=== PATIENT | male | born 1950 | race Caucasian/White ===

== ENCOUNTER 2021-08-17 20:18 | Inpatient (IN) ==
[2021-08-17 20:51] LABS: Basophils # 0.1 10*3/uL (0.0-0.2); Basophils % 0.4 % (0.0-0.8); Eosinophils % 0.1 % (0.00-10.9); Hematocrit 39.1 VOL% (42.0-52.0); Hemoglobin 12.6 GM/DL (14.0-18.0); Immature Granulocytes % 0.5 %; Immature Granulocytes Absolute 0.08 #; Lymphocytes # 0.6 10*3/uL (1.4-4.0); Mean Corpuscular HGB Conc 32.2 GM/DL (32-36); Mean Corpuscular Volume 101.3 FL (87-102); Mean Platelet Volume 11.4 FL (9.6-12.0); Monocytes % 6.7 % (1.7-12.7); Neutrophils % 88.3 % (38.7-73.9); Platelet Count 251 T/CUMM (130-400); Red Blood Count 3.86 MC/CUMM (3.8-5.5); Red Cell Distribution Width 13.9 % (9.3-17.3); White Blood Count 15.1 T/CUMM (4-12)
[2021-08-17 21:08] LABS: PT Patient Result 10.9 SECS (10.5-12.0)
[2021-08-17 21:15] LABS: Anisocytosis Slight; Band Neutrophils 8 % (0-10); Lymphocytes 2 % (20-55); Macrocytosis Slight; Platelet Estimate Normal; Target Cells Slight; Total Cells Counted 100
[2021-08-17 21:17] LABS: ABG HCO3 27.1 MMOL/L (20-26); ABG Oxygen Saturation 97.1 % (95-100); ABG PH 7.375 (7.35-7.45); ABG PO2 90.1 MM HG (80-95); ABG TCO2 25.9 MMOL/L (23-27)
[2021-08-17 21:18] LABS: Albumin 3.3 G/DL (3.4-5.0); Bilirubin,Total 0.4 MG/DL (0.20-1.00); Calcium 9.2 MG/DL (8.5-10.1); Osmolality,Calculated 291.5 MOS/KG (273-304); Potassium 3.9 MMOL/L (3.5-5.1); Total Protein 8.4 G/DL (6.4-8.2)
[2021-08-17] MEDS ORDERED: PIPERACILLIN/TAZOBACTAM 3,375 MG in SODIUM CHLORIDE 0.9% 100 ML IV STA (21:52)
[2021-08-17] MEDS ORDERED: SODIUM CHLORIDE 0.9% 1,000 ML IV STA (21:54)
[2021-08-18 00:51] LABS: Hyaline Casts,Urine 15 /LPF (0-3); Mucus,Urine Few /LPF (Occasional); RBC,Urine 2 /HPF (0-4); Squamous Epithelial Cell,Urine Occasional /HPF (0-10)
[2021-08-18 00:52] LABS: Bilirubin,Urine Negative (Negative); Blood, Urine Trace mg/dL (Negative); Glucose,Urine (UA) Negative (Negative); Ketones,Urine Negative (Negative); Nitrite,Urine Negative (Negative); Protein,Urine 30 mg/dL (Negative); Urine Appearance Clear (Clear); Urine Color Yellow (Yellow); Urine Specific Gravity >= 1.030 (1.001-1.035); Urine Urobilinogen 0.2 eU/dL (<2.0); Urine pH 5.5 (4.5-8.0)
[2021-08-18] MEDS ORDERED: LABETALOL 20 MG/4 ML SYRINGE IV STA (00:55)
[2021-08-18] MEDS ORDERED: ACETAMINOPHEN 500 MG TABLET PO STA (01:33)
[2021-08-18] MEDS ORDERED: SODIUM CHLORIDE 0.9% 1,000 ML IV STA (03:10)
[2021-08-18] MEDS ORDERED: ALBUTEROL 2.5 MG/3 ML NEB RESP TX PRN (03:35)
[2021-08-18] MEDS ORDERED: ONDANSETRON 4 MG/2 ML VIAL IV PRN (03:35)
[2021-08-18 04:40] LABS: ABG Base Excess 0.2 MMOL/L (-2.5-2.5); ABG HCO3 24.6 MMOL/L (20-26); ABG PH 7.265 (7.35-7.45); ABG TCO2 26.2 MMOL/L (23-27)
[2021-08-18] MEDS: LACTATED RINGERS 1,000 ML IV SCH ×3 (04:44→18:16)
[2021-08-18 05:09] LABS: Basophils % 0.2 % (0.0-0.8); Eosinophils % 0.1 % (0.00-10.9); Hematocrit 37.9 VOL% (42.0-52.0); Hemoglobin 11.6 GM/DL (14.0-18.0); Immature Granulocytes % 0.6 %; Immature Granulocytes Absolute 0.08 #; Lymphocytes # 0.7 10*3/uL (1.4-4.0); Lymphocytes % 4.9 % (21.2-54.2); Mean Corpuscular HGB Conc 30.6 GM/DL (32-36); Mean Corpuscular Volume 106.2 FL (87-102); Mean Platelet Volume 11.4 FL (9.6-12.0); Monocytes % 7.5 % (1.7-12.7); Neutrophils % 86.7 % (38.7-73.9); Platelet Count 224 T/CUMM (130-400); Red Blood Count 3.57 MC/CUMM (3.8-5.5); Red Cell Distribution Width 13.9 % (9.3-17.3); White Blood Count 13.2 T/CUMM (4-12)
[2021-08-18] MEDS ORDERED: DEXTROSE 10% 250 ML BAG IV PRN (05:21)
[2021-08-18] MEDS ORDERED: GLUCAGON 1 MG VIAL IM PRN (05:21)
[2021-08-18 05:31] LABS: Alanine Aminotransferase 35 U/L (16-61); Alkaline Phosphatase 73 U/L (45-117); Aspartate Amino Transferase 21 U/L (0-37); Bilirubin,Total < 0.39 MG/DL (0.20-1.00); Blood Urea Nitrogen 38 MG/DL (7-18); Calcium 8.6 MG/DL (8.5-10.1); Carbon Dioxide 31 MMOL/L (21-32); Chloride 108 MMOL/L (98-107); Estimated Glom Filtration Rate 116 ML/MIN; Glucose 149 MG/DL (74-106); Osmolality,Calculated 294.1 MOS/KG (273-304); Potassium 4.2 MMOL/L (3.5-5.1); Sodium 142 MMOL/L (136-145); Total Protein 7.3 G/DL (6.4-8.2)
[2021-08-18 05:32] LABS: Band Neutrophils 1 % (0-10); Hypochromia Slight; Lymphocytes 4 % (20-55); Microcytosis Slight; Platelet Estimate Adequate; Total Cells Counted 100
[2021-08-18] MEDS ORDERED: HYDROCORTISONE 100 MG VIAL IV ONE (05:32)
[2021-08-18] MEDS ORDERED: LACTATED RINGERS 500 ML IV ONE (05:32)
[2021-08-18] MEDS: methylPREDNISolone SOD SUC 40 MG/1 ML VIAL IV SCH ×2 (05:45→17:04)
[2021-08-18] MEDS: LEVOFLOXACIN INJ 750 MG/150 ML PREMIX IV SCH (05:59)
[2021-08-18] MEDS ORDERED: NOREPINEPHRINE 8 MG in SODIUM CHLORIDE 0.9% 242 ML IV PRN (06:34)
[2021-08-18] MEDS ORDERED: NOREPINEPHRINE 4 MG/4 ML VIAL IV ONE (06:37)
[2021-08-18] MEDS: ALBUTEROL/IPRATROPIUM 3 ML NEB RESP TX SCH ×3 (07:20→18:58)
[2021-08-18] MEDS: INSULIN LISPRO 100 UNIT/ML SUBCUT SCH ×4 (07:31→21:07)
[2021-08-18] MEDS: ENOXAPARIN 40 MG/0.4 ML SYRINGE SUBCUT SCH (08:37)
[2021-08-18] MEDS: PANTOPRAZOLE 40 MG VIAL IV SCH (08:38)
[2021-08-18] MEDS: PIPERACILLIN/TAZOBACTAM 3,375 MG in SODIUM CHLORIDE 0.9% 100 ML IV SCH ×2 (08:42→17:09)
[2021-08-18] MEDS: CARBIDOPA/LEVODOPA 25-100 MG TABLET PO SCH ×2 (08:50→16:04)
[2021-08-19] MEDS: ALBUTEROL/IPRATROPIUM 3 ML NEB RESP TX SCH ×4 (00:16→19:40)
[2021-08-19] MEDS: PIPERACILLIN/TAZOBACTAM 3,375 MG in SODIUM CHLORIDE 0.9% 100 ML IV SCH ×4 (00:24→23:39)
[2021-08-19] MEDS: LACTATED RINGERS 1,000 ML IV SCH ×5 (01:25→23:50)
[2021-08-19 04:57] LABS: Basophils % 0.1 % (0.0-0.8); Hematocrit 26.6 VOL% (42.0-52.0); Hemoglobin 8.5 GM/DL (14.0-18.0); Immature Granulocytes % 0.5 %; Immature Granulocytes Absolute 0.05 #; Lymphocytes % 9.4 % (21.2-54.2); Mean Corpuscular Volume 102.7 FL (87-102); Mean Platelet Volume 11.4 FL (9.6-12.0); Monocytes # 0.8 10*3/uL (0.11-0.8); Monocytes % 7.2 % (1.7-12.7); Neutrophils % 82.8 % (38.7-73.9); Platelet Count 181 T/CUMM (130-400); Red Blood Count 2.59 MC/CUMM (3.8-5.5); White Blood Count 10.4 T/CUMM (4-12)
[2021-08-19 05:07] LABS: PT Patient Result 10.9 SECS (10.5-12.0); Partial Thromboplastin Time 31.6 SECS (23.8-32.1)
[2021-08-19 05:16] LABS: Alanine Aminotransferase 20 U/L (16-61); Albumin 2.1 G/DL (3.4-5.0); Alkaline Phosphatase 51 U/L (45-117); Aspartate Amino Transferase 13 U/L (0-37); Bilirubin,Total < 0.39 MG/DL (0.20-1.00); Blood Urea Nitrogen 33 MG/DL (7-18); Calcium 8.6 MG/DL (8.5-10.1); Carbon Dioxide 27 MMOL/L (21-32); Chloride 110 MMOL/L (98-107); Estimated Glom Filtration Rate 139 ML/MIN; Glucose 100 MG/DL (74-106); Osmolality,Calculated 289.1 MOS/KG (273-304); Potassium 3.5 MMOL/L (3.5-5.1); Sodium 142 MMOL/L (136-145); Total Protein 5.9 G/DL (6.4-8.2)
[2021-08-19] MEDS: methylPREDNISolone SOD SUC 40 MG/1 ML VIAL IV SCH ×2 (05:50→17:37)
[2021-08-19] MEDS: LEVOFLOXACIN INJ 750 MG/150 ML PREMIX IV SCH (05:51)
[2021-08-19] MEDS: LINACLOTIDE 145 MCG CAPSULE PO SCH (09:15)
[2021-08-19] MEDS: INSULIN LISPRO 100 UNIT/ML SUBCUT SCH ×2 (09:16→21:17)
[2021-08-19] MEDS: ENOXAPARIN 40 MG/0.4 ML SYRINGE SUBCUT SCH (09:41)
[2021-08-19] MEDS: PANTOPRAZOLE 40 MG VIAL IV SCH (09:44)
[2021-08-19] MEDS: LORazepam 2 MG/1 ML VIAL IV PRN ×2 (09:54→21:36)
[2021-08-20] MEDS: ALBUTEROL/IPRATROPIUM 3 ML NEB RESP TX SCH ×4 (01:45→19:33)
[2021-08-20 06:20] LABS: Basophils % 0.1 % (0.0-0.8); Hematocrit 29.8 VOL% (42.0-52.0); Hemoglobin 9.7 GM/DL (14.0-18.0); Immature Granulocytes % 0.5 %; Immature Granulocytes Absolute 0.04 #; Lymphocytes # 1.3 10*3/uL (1.4-4.0); Lymphocytes % 14.5 % (21.2-54.2); Mean Corpuscular HGB Conc 32.6 GM/DL (32-36); Mean Corpuscular Volume 101.7 FL (87-102); Mean Platelet Volume 10.8 FL (9.6-12.0); Monocytes # 0.6 10*3/uL (0.11-0.8); Monocytes % 7.2 % (1.7-12.7); Neutrophils % 77.7 % (38.7-73.9); Platelet Count 210 T/CUMM (130-400); Red Blood Count 2.93 MC/CUMM (3.8-5.5); Red Cell Distribution Width 13.7 % (9.3-17.3); White Blood Count 8.8 T/CUMM (4-12)
[2021-08-20 06:32] LABS: PT Patient Result 10.9 SECS (10.5-12.0); Partial Thromboplastin Time 24.8 SECS (23.8-32.1)
[2021-08-20] MEDS: methylPREDNISolone SOD SUC 40 MG/1 ML VIAL IV SCH ×2 (06:32→17:43)
[2021-08-20] MEDS: LEVOFLOXACIN INJ 750 MG/150 ML PREMIX IV SCH (06:32)
[2021-08-20 06:36] LABS: Alanine Aminotransferase 24 U/L (16-61); Albumin 2.3 G/DL (3.4-5.0); Alkaline Phosphatase 51 U/L (45-117); Aspartate Amino Transferase 15 U/L (0-37); Bilirubin,Total < 0.39 MG/DL (0.20-1.00); Blood Urea Nitrogen 26 MG/DL (7-18); Calcium 8.3 MG/DL (8.5-10.1); Carbon Dioxide 30 MMOL/L (21-32); Chloride 108 MMOL/L (98-107); Estimated Glom Filtration Rate 141 ML/MIN; Glucose 92 MG/DL (74-106); Osmolality,Calculated 285.3 MOS/KG (273-304); Potassium 4.1 MMOL/L (3.5-5.1); Sodium 141 MMOL/L (136-145)
[2021-08-20] MEDS: LACTATED RINGERS 1,000 ML IV SCH ×2 (09:08→17:41)
[2021-08-20] MEDS: LINACLOTIDE 145 MCG CAPSULE PO SCH (09:08)
[2021-08-20] MEDS: PIPERACILLIN/TAZOBACTAM 3,375 MG in SODIUM CHLORIDE 0.9% 100 ML IV SCH ×2 (09:21→16:25)
[2021-08-20] MEDS: PANTOPRAZOLE 40 MG VIAL IV SCH (09:23)
[2021-08-20] MEDS: LORazepam 2 MG/1 ML VIAL IV PRN ×2 (09:28→15:17)
[2021-08-20] MEDS: INSULIN LISPRO 100 UNIT/ML SUBCUT SCH ×2 (10:29→21:01)
[2021-08-20] MEDS: METOPROLOL TARTRATE 5 MG/5 ML VIAL IV SCH ×3 (11:09→21:02)
[2021-08-20 12:26] LABS: M. Tuberculosis PCR Result Negative (Negative)
[2021-08-20 17:25] LABS: Arterial Base Excess iSTAT 3 MMOL/L (-2.5-2.5); Arterial Bicarbonate iSTAT 29.3 MMOL/L (20-26); Arterial O2 Saturation iSTAT 99 % (95-100); Arterial PCO2 iSTAT 55 MM HG (35-48); Arterial PO2 iSTAT 169 MM HG (80-95); Arterial Total CO2 iSTAT 31 MMO/L (23-27); Arterial pH iSTAT 7.339 (7.35-7.45)
[2021-08-21] MEDS: PIPERACILLIN/TAZOBACTAM 3,375 MG in SODIUM CHLORIDE 0.9% 100 ML IV SCH ×3 (00:38→16:08)
[2021-08-21] MEDS: ALBUTEROL/IPRATROPIUM 3 ML NEB RESP TX SCH ×4 (00:57→19:20)
[2021-08-21] MEDS: METOPROLOL TARTRATE 5 MG/5 ML VIAL IV SCH ×4 (03:41→21:21)
[2021-08-21] MEDS: LACTATED RINGERS 1,000 ML IV SCH ×4 (03:48→18:03)
[2021-08-21] MEDS: LEVOFLOXACIN INJ 750 MG/150 ML PREMIX IV SCH (05:10)
[2021-08-21] MEDS: methylPREDNISolone SOD SUC 40 MG/1 ML VIAL IV SCH ×2 (05:11→17:20)
[2021-08-21 05:32] LABS: Basophils % 0.1 % (0.0-0.8); Hematocrit 31.5 VOL% (42.0-52.0); Hemoglobin 10.2 GM/DL (14.0-18.0); Immature Granulocytes % 0.5 %; Immature Granulocytes Absolute 0.04 #; Lymphocytes # 1.7 10*3/uL (1.4-4.0); Lymphocytes % 19.7 % (21.2-54.2); Mean Corpuscular HGB Conc 32.4 GM/DL (32-36); Mean Corpuscular Volume 99.7 FL (87-102); Mean Platelet Volume 10.6 FL (9.6-12.0); Monocytes # 0.8 10*3/uL (0.11-0.8); Monocytes % 8.9 % (1.7-12.7); Neutrophils % 70.8 % (38.7-73.9); Platelet Count 248 T/CUMM (130-400); Red Blood Count 3.16 MC/CUMM (3.8-5.5); Red Cell Distribution Width 13.3 % (9.3-17.3); White Blood Count 8.4 T/CUMM (4-12)
[2021-08-21 05:52] LABS: Calcium 8.3 MG/DL (8.5-10.1); Osmolality,Calculated 284.1 MOS/KG (273-304); Potassium 3.8 MMOL/L (3.5-5.1)
[2021-08-21] MEDS: POTASSIUM CHLORIDE RIDER 20 MEQ/100 ML PREMIX IV PRN (06:09)
[2021-08-21] MEDS: PANTOPRAZOLE 40 MG VIAL IV SCH (08:05)
[2021-08-21] MEDS: INSULIN LISPRO 100 UNIT/ML SUBCUT SCH ×2 (08:11→20:21)
[2021-08-21] MEDS: LINACLOTIDE 145 MCG CAPSULE PO SCH ×2 (08:14→08:17)
[2021-08-21] MEDS ORDERED: propofoL 200 MG/20 ML VIAL IV ONE (10:19)
[2021-08-21] MEDS ORDERED: LIDOCAINE 2% 5 ML VIAL ONE (10:19)
[2021-08-21] MEDS: LORazepam 2 MG/1 ML VIAL IV PRN ×2 (10:30→17:20)
[2021-08-21 14:26] LABS: M. Tuberculosis PCR Result Negative (Negative); M. Tuberculosis PCR Source BRONCH WASH
[2021-08-22] MEDS: PIPERACILLIN/TAZOBACTAM 3,375 MG in SODIUM CHLORIDE 0.9% 100 ML IV SCH ×3 (00:10→16:35)
[2021-08-22] MEDS: ALBUTEROL/IPRATROPIUM 3 ML NEB RESP TX SCH ×4 (00:10→19:37)
[2021-08-22] MEDS: METOPROLOL TARTRATE 5 MG/5 ML VIAL IV SCH ×4 (04:02→22:02)
[2021-08-22] MEDS: LACTATED RINGERS 1,000 ML IV SCH ×4 (04:02→21:32)
[2021-08-22] MEDS: LEVOFLOXACIN INJ 750 MG/150 ML PREMIX IV SCH (05:47)
[2021-08-22] MEDS: methylPREDNISolone SOD SUC 40 MG/1 ML VIAL IV SCH ×2 (05:47→17:08)
[2021-08-22] MEDS: INSULIN LISPRO 100 UNIT/ML SUBCUT SCH ×2 (10:16→20:04)
[2021-08-22] MEDS: LINACLOTIDE 145 MCG CAPSULE PO SCH (10:16)
[2021-08-22] MEDS: PANTOPRAZOLE 40 MG VIAL IV SCH (10:27)
[2021-08-22] MEDS: MICAFUNGIN 100 MG in SODIUM CHLORIDE 0.9% 100 ML IV SCH (20:20)
[2021-08-23] MEDS: ALBUTEROL/IPRATROPIUM 3 ML NEB RESP TX SCH ×4 (01:00→19:10)
[2021-08-23] MEDS: PIPERACILLIN/TAZOBACTAM 3,375 MG in SODIUM CHLORIDE 0.9% 100 ML IV SCH ×3 (01:24→15:50)
[2021-08-23] MEDS: METOPROLOL TARTRATE 5 MG/5 ML VIAL IV SCH ×4 (04:20→22:46)
[2021-08-23 04:47] LABS: Basophils % 0.1 % (0.0-0.8); Eosinophils # 0.1 10*3/uL (0.0-0.87); Eosinophils % 0.5 % (0.00-10.9); Hematocrit 30.2 VOL% (42.0-52.0); Hemoglobin 9.9 GM/DL (14.0-18.0); Immature Granulocytes % 0.8 %; Lymphocytes % 15.9 % (21.2-54.2); Mean Corpuscular HGB Conc 32.8 GM/DL (32-36); Mean Platelet Volume 10.4 FL (9.6-12.0); Monocytes # 1.1 10*3/uL (0.11-0.8); Monocytes % 8.5 % (1.7-12.7); Neutrophils % 74.2 % (38.7-73.9); Platelet Count 227 T/CUMM (130-400); Red Blood Count 3.05 MC/CUMM (3.8-5.5); Red Cell Distribution Width 13.6 % (9.3-17.3); White Blood Count 12.8 T/CUMM (4-12)
[2021-08-23 05:06] LABS: Bilirubin,Total 0.4 MG/DL (0.20-1.00); Calcium 7.6 MG/DL (8.5-10.1); Osmolality,Calculated 281.1 MOS/KG (273-304); Potassium 3.5 MMOL/L (3.5-5.1); Total Protein 5.3 G/DL (6.4-8.2)
[2021-08-23 05:16] LABS: ABG Base Excess 5.5 MMOL/L (-2.5-2.5); ABG HCO3 29.4 MMOL/L (20-26); ABG Oxygen Saturation 98.7 % (95-100); ABG PCO2 43.5 MM HG (35-48); ABG PH 7.449 (7.35-7.45); ABG TCO2 27.3 MMOL/L (23-27)
[2021-08-23] MEDS: methylPREDNISolone SOD SUC 40 MG/1 ML VIAL IV SCH ×2 (06:39→18:52)
[2021-08-23] MEDS: LEVOFLOXACIN INJ 750 MG/150 ML PREMIX IV SCH (06:39)
[2021-08-23] MEDS: LINACLOTIDE 145 MCG CAPSULE PO SCH (07:21)
[2021-08-23] MEDS: PANTOPRAZOLE 40 MG VIAL IV SCH (09:20)
[2021-08-23] MEDS: ENOXAPARIN 40 MG/0.4 ML SYRINGE SUBCUT SCH (09:24)
[2021-08-23] MEDS: INSULIN LISPRO 100 UNIT/ML SUBCUT SCH ×2 (10:40→20:57)
[2021-08-23] MEDS: HALOPERIDOL 5 MG/ML AMP IM PRN ×2 (10:55→12:47)
[2021-08-23] MEDS: LACTATED RINGERS 1,000 ML IV SCH ×2 (13:00→13:11)
[2021-08-23] MEDS ORDERED: MORPHINE 2 MG/1 ML SYRINGE ONE (13:05)
[2021-08-23] MEDS: MORPHINE 2 MG/1 ML SYRINGE IV PRN (13:10)
[2021-08-23] MEDS: CARBIDOPA/LEVODOPA 25-100 MG TABLET PO SCH (15:09)
[2021-08-23] MEDS ORDERED: MAGNESIUM SULF RIDER 4 GM/100 ML PREMIX IV PRN (17:05)
[2021-08-23] MEDS: POTASSIUM CHLORIDE RIDER 10 MEQ/100 ML PREMIX IV SCH ×3 (17:20→19:42)
[2021-08-23] MEDS: MAGNESIUM SULF RIDER 2 GM/50 ML PREMIX IV PRN (17:30)
[2021-08-23] MEDS: MICAFUNGIN 100 MG in SODIUM CHLORIDE 0.9% 100 ML IV SCH (20:55)
[2021-08-24] MEDS: LACTATED RINGERS 1,000 ML IV SCH ×4 (00:12→22:53)
[2021-08-24] MEDS: ALBUTEROL/IPRATROPIUM 3 ML NEB RESP TX SCH ×4 (00:30→19:31)
[2021-08-24] MEDS: PIPERACILLIN/TAZOBACTAM 3,375 MG in SODIUM CHLORIDE 0.9% 100 ML IV SCH ×3 (00:51→17:05)
[2021-08-24 03:45] LABS: ABG HCO3 28.9 MMOL/L (20-26); ABG Oxygen Saturation 97.2 % (95-100); ABG PCO2 43.1 MM HG (35-48); ABG PH 7.446 (7.35-7.45); ABG PO2 87.1 MM HG (80-95); ABG TCO2 26.2 MMOL/L (23-27)
[2021-08-24 03:53] LABS: Basophils % 0.2 % (0.0-0.8); Eosinophils # 0.2 10*3/uL (0.0-0.87); Eosinophils % 1.3 % (0.00-10.9); Hematocrit 32.8 VOL% (42.0-52.0); Hemoglobin 10.6 GM/DL (14.0-18.0); Immature Granulocytes % 0.9 %; Immature Granulocytes Absolute 0.11 #; Lymphocytes # 1.9 10*3/uL (1.4-4.0); Lymphocytes % 16.2 % (21.2-54.2); Mean Corpuscular HGB Conc 32.3 GM/DL (32-36); Mean Corpuscular Volume 99.7 FL (87-102); Mean Platelet Volume 10.6 FL (9.6-12.0); Monocytes # 1.1 10*3/uL (0.11-0.8); Monocytes % 9.1 % (1.7-12.7); Neutrophils % 72.3 % (38.7-73.9); Platelet Count 259 T/CUMM (130-400); Red Blood Count 3.29 MC/CUMM (3.8-5.5); Red Cell Distribution Width 13.7 % (9.3-17.3); White Blood Count 11.7 T/CUMM (4-12)
[2021-08-24 04:11] LABS: Albumin 2.2 G/DL (3.4-5.0); Bilirubin,Total 0.4 MG/DL (0.20-1.00); Calcium 8.1 MG/DL (8.5-10.1); Osmolality,Calculated 281.1 MOS/KG (273-304); Potassium 3.6 MMOL/L (3.5-5.1); Total Protein 5.8 G/DL (6.4-8.2)
[2021-08-24] MEDS: METOPROLOL TARTRATE 5 MG/5 ML VIAL IV SCH ×4 (04:19→17:00)
[2021-08-24] MEDS: LEVOFLOXACIN INJ 750 MG/150 ML PREMIX IV SCH (06:59)
[2021-08-24] MEDS: methylPREDNISolone SOD SUC 40 MG/1 ML VIAL IV SCH ×2 (06:59→17:02)
[2021-08-24] MEDS ORDERED: ROCURONIUM 50 MG/5 ML VIAL IV ONE (07:17)
[2021-08-24] MEDS ORDERED: ETOMIDATE 40 MG/20 ML VIAL IV ONE (07:17)
[2021-08-24] MEDS ORDERED: DEXAMETHASONE 4 MG/1 ML VIAL ONE (07:17)
[2021-08-24] MEDS ORDERED: LIDOCAINE 2% 5 ML VIAL ONE (07:17)
[2021-08-24] MEDS ORDERED: ONDANSETRON 4 MG/2 ML VIAL ONE (07:17)
[2021-08-24] MEDS ORDERED: fentaNYL 100 MCG/2 ML VIAL ONE (07:17)
[2021-08-24] MEDS ORDERED: SUCCINYLCHOLINE 200 MG/10 ML VIAL ONE (07:17)
[2021-08-24] MEDS: LINACLOTIDE 145 MCG CAPSULE PO SCH (08:04)
[2021-08-24] MEDS ORDERED: CALCIUM CHLORIDE 1,000 MG/10 ML VIAL IV ONE (08:05)
[2021-08-24] MEDS ORDERED: TISSUE ADHESIVE 1 EACH APPLICATOR TOP ONE (08:12)
[2021-08-24] MEDS ORDERED: SUGAMMADEX 200 MG/2 ML VIAL IV ONE (08:24)
[2021-08-24] MEDS ORDERED: METHYLENE BLUE 10 ML VIAL IV ONE (08:29)
[2021-08-24] MEDS ORDERED: NALOXONE 0.4 MG/ML VIAL ONE (08:51)
[2021-08-24] MEDS ORDERED: LACTATED RINGERS 1,000 ML IV ONE (08:51)
[2021-08-24] MEDS ORDERED: LABETALOL 20 MG/4 ML SYRINGE IV ONE (08:51)
[2021-08-24] MEDS ORDERED: ASPIRIN EC 81 MG TABLET PO SCH (09:00)
[2021-08-24] MEDS ORDERED: ALBUMIN 25% 25 GM/100 ML VIAL IV ONE (09:14)
[2021-08-24] MEDS: INSULIN LISPRO 100 UNIT/ML SUBCUT SCH ×2 (09:30→21:58)
[2021-08-24] MEDS: allopurinoL 100 MG TABLET PO SCH (10:06)
[2021-08-24] MEDS: CHOLECALCIFEROL 5,000 UNIT TABLET PO SCH (10:06)
[2021-08-24] MEDS: PANTOPRAZOLE 40 MG VIAL IV SCH (10:06)
[2021-08-24] MEDS ORDERED: METOPROLOL TARTRATE 25 MG TABLET PEG SCH (10:32)
[2021-08-24] MEDS ORDERED: MAGNESIUM SULF RIDER 2 GM/50 ML PREMIX IV ONE (10:34)
[2021-08-24] MEDS ORDERED: POTASSIUM CHLORIDE 20 MEQ TABLET PO ONE (10:36)
[2021-08-24] MEDS: POTASSIUM CHLORIDE RIDER 20 MEQ/100 ML PREMIX IV PRN (12:04)
[2021-08-24] MEDS: MICAFUNGIN 100 MG in SODIUM CHLORIDE 0.9% 100 ML IV SCH (21:39)
[2021-08-24] MEDS: ASCORBIC ACID 500 MG TABLET PEG SCH (21:56)
[2021-08-25] MEDS: METOPROLOL TARTRATE 5 MG/5 ML VIAL IV SCH ×4 (00:14→19:20)
[2021-08-25] MEDS: ALBUTEROL/IPRATROPIUM 3 ML NEB RESP TX SCH ×4 (00:28→19:21)
[2021-08-25] MEDS: PIPERACILLIN/TAZOBACTAM 3,375 MG in SODIUM CHLORIDE 0.9% 100 ML IV SCH ×3 (00:46→19:51)
[2021-08-25 03:30] LABS: Basophils % 0.1 % (0.0-0.8); Eosinophils % 0.1 % (0.00-10.9); Hemoglobin 10.2 GM/DL (14.0-18.0); Immature Granulocytes % 1.1 %; Immature Granulocytes Absolute 0.12 #; Lymphocytes # 0.9 10*3/uL (1.4-4.0); Lymphocytes % 7.9 % (21.2-54.2); Mean Corpuscular HGB Conc 32.9 GM/DL (32-36); Mean Corpuscular Volume 99.7 FL (87-102); Monocytes # 0.8 10*3/uL (0.11-0.8); Monocytes % 7.6 % (1.7-12.7); Neutrophils % 83.2 % (38.7-73.9); Platelet Count 257 T/CUMM (130-400); Red Blood Count 3.11 MC/CUMM (3.8-5.5); Red Cell Distribution Width 13.8 % (9.3-17.3); White Blood Count 11.1 T/CUMM (4-12)
[2021-08-25 03:49] LABS: Calcium 8.3 MG/DL (8.5-10.1); Osmolality,Calculated 277.4 MOS/KG (273-304)
[2021-08-25] MEDS: LACTATED RINGERS 1,000 ML IV SCH ×3 (04:03→19:19)
[2021-08-25] MEDS: LEVOFLOXACIN INJ 750 MG/150 ML PREMIX IV SCH (06:31)
[2021-08-25] MEDS: methylPREDNISolone SOD SUC 40 MG/1 ML VIAL IV SCH ×2 (06:33→19:45)
[2021-08-25] MEDS: ROSUVASTATIN 20 MG TABLET PEG SCH (09:50)
[2021-08-25] MEDS: LINACLOTIDE 145 MCG CAPSULE PO SCH (09:50)
[2021-08-25] MEDS: ASPIRIN CHEW 81 MG TABLET PO SCH (09:50)
[2021-08-25] MEDS: PANTOPRAZOLE 40 MG VIAL IV SCH (09:50)
[2021-08-25] MEDS: CHOLECALCIFEROL 5,000 UNIT TABLET PO SCH (09:50)
[2021-08-25] MEDS: allopurinoL 100 MG TABLET PO SCH (09:50)
[2021-08-25] MEDS: ASCORBIC ACID 500 MG TABLET PEG SCH ×2 (09:50→20:33)
[2021-08-25] MEDS: CARBIDOPA/LEVODOPA 25-100 MG TABLET PO SCH ×4 (10:00→20:08)
[2021-08-25] MEDS: INSULIN LISPRO 100 UNIT/ML SUBCUT SCH ×2 (10:24→20:08)
[2021-08-25] MEDS: MORPHINE 2 MG/1 ML SYRINGE IV PRN (11:06)
[2021-08-25] MEDS ORDERED: METOPROLOL TARTRATE 5 MG/5 ML VIAL IV ONE (11:10)
[2021-08-25] MEDS ORDERED: METOPROLOL TARTRATE 25 MG TABLET PO SCH (13:00)
[2021-08-25 13:26] LABS: Arterial Base Excess iSTAT 3 MMOL/L (-2.5-2.5); Arterial Bicarbonate iSTAT 29.6 MMOL/L (20-26); Arterial O2 Saturation iSTAT 94 % (95-100); Arterial PCO2 iSTAT 56 MM HG (35-48); Arterial PO2 iSTAT 80 MM HG (80-95); Arterial Total CO2 iSTAT 31 MMO/L (23-27); Arterial pH iSTAT 7.331 (7.35-7.45)
[2021-08-25] MEDS: MICAFUNGIN 100 MG in SODIUM CHLORIDE 0.9% 100 ML IV SCH (20:33)
[2021-08-26] MEDS: ALBUTEROL/IPRATROPIUM 3 ML NEB RESP TX SCH ×4 (01:49→20:10)
[2021-08-26 04:31] LABS: Arterial Base Excess iSTAT 6 MMOL/L (-2.5-2.5); Arterial Bicarbonate iSTAT 31.8 MMOL/L (20-26); Arterial O2 Saturation iSTAT 99 % (95-100); Arterial PCO2 iSTAT 48 MM HG (35-48); Arterial PO2 iSTAT 152 MM HG (80-95); Arterial Total CO2 iSTAT 33 MMO/L (23-27); Arterial pH iSTAT 7.428 (7.35-7.45)
[2021-08-26] MEDS: methylPREDNISolone SOD SUC 40 MG/1 ML VIAL IV SCH ×2 (05:08→17:13)
[2021-08-26 05:40] LABS: Basophils % 0.1 % (0.0-0.8); Hematocrit 33.4 VOL% (42.0-52.0); Hemoglobin 10.8 GM/DL (14.0-18.0); Immature Granulocytes % 1.1 %; Lymphocytes # 0.9 10*3/uL (1.4-4.0); Lymphocytes % 10.4 % (21.2-54.2); Mean Corpuscular HGB Conc 32.3 GM/DL (32-36); Mean Corpuscular Volume 100.6 FL (87-102); Mean Platelet Volume 10.4 FL (9.6-12.0); Monocytes # 0.7 10*3/uL (0.11-0.8); Monocytes % 7.7 % (1.7-12.7); Neutrophils % 80.7 % (38.7-73.9); Platelet Count 241 T/CUMM (130-400); Red Blood Count 3.32 MC/CUMM (3.8-5.5); White Blood Count 8.9 T/CUMM (4-12)
[2021-08-26] MEDS: METOPROLOL TARTRATE 5 MG/5 ML VIAL IV SCH ×4 (05:59→17:13)
[2021-08-26 06:00] LABS: Osmolality,Calculated 285.1 MOS/KG (273-304); Potassium 3.7 MMOL/L (3.5-5.1)
[2021-08-26 06:02] LABS: PT Patient Result 11.2 SECS (10.5-12.0); Partial Thromboplastin Time 31.7 SECS (23.8-32.1)
[2021-08-26] MEDS: LACTATED RINGERS 1,000 ML IV SCH ×2 (06:04→18:40)
[2021-08-26] MEDS: MAGNESIUM SULF RIDER 2 GM/50 ML PREMIX IV PRN (06:19)
[2021-08-26] MEDS ORDERED: LIDOCAINE 2% 20 ML VIAL RESP TX ONE (08:00)
[2021-08-26] MEDS ORDERED: LIDOCAINE 1% 20 ML VIAL MISC INJ ONE (08:00)
[2021-08-26] MEDS ORDERED: LIDOCAINE 2% VISCOUS 100 ML BOTTLE SWISH/SPIT ONE (08:00)
[2021-08-26] MEDS: ROSUVASTATIN 20 MG TABLET PEG SCH (09:52)
[2021-08-26] MEDS: PANTOPRAZOLE 40 MG VIAL IV SCH (09:52)
[2021-08-26] MEDS: LINACLOTIDE 145 MCG CAPSULE PO SCH (09:52)
[2021-08-26] MEDS: ENOXAPARIN 40 MG/0.4 ML SYRINGE SUBCUT SCH (09:52)
[2021-08-26] MEDS: CHOLECALCIFEROL 5,000 UNIT TABLET PO SCH (09:53)
[2021-08-26] MEDS: ASCORBIC ACID 500 MG TABLET PEG SCH ×2 (09:53→21:34)
[2021-08-26] MEDS: POTASSIUM CHLORIDE 20 MEQ TABLET PO PRN (09:53)
[2021-08-26] MEDS: ASPIRIN CHEW 81 MG TABLET PO SCH (09:53)
[2021-08-26] MEDS: allopurinoL 100 MG TABLET PO SCH (09:53)
[2021-08-26] MEDS: INSULIN LISPRO 100 UNIT/ML SUBCUT SCH ×2 (09:59→21:25)
[2021-08-26] MEDS: CARBIDOPA/LEVODOPA 25-100 MG TABLET PO SCH (10:45)
[2021-08-26] MEDS: MORPHINE 2 MG/1 ML SYRINGE IV PRN (10:52)
[2021-08-26] MEDS: MICAFUNGIN 100 MG in SODIUM CHLORIDE 0.9% 100 ML IV SCH (21:27)
[2021-08-27] MEDS: ALBUTEROL/IPRATROPIUM 3 ML NEB RESP TX SCH ×4 (00:48→19:20)
[2021-08-27] MEDS: METOPROLOL TARTRATE 5 MG/5 ML VIAL IV SCH ×5 (01:40→17:13)
[2021-08-27] MEDS: diphenhydrAMINE 25 MG/10 ML UDCUP PO SCH (01:57)
[2021-08-27] MEDS: ACETAMINOPHEN 325 MG/10.15 ML UDCUP PO SCH (01:58)
[2021-08-27] MEDS: IMMUNE GLOBULIN 10% 20 GM, IMMUNE GLOBULIN 10% 10 GM, IMMUNE GLOBULIN 10% 5 GM in PREMI... IV SCH (02:41)
[2021-08-27] MEDS: MORPHINE 2 MG/1 ML SYRINGE IV PRN ×4 (03:27→21:39)
[2021-08-27] MEDS: methylPREDNISolone SOD SUC 40 MG/1 ML VIAL IV SCH ×2 (05:34→17:14)
[2021-08-27 05:53] LABS: Calcium 8.6 MG/DL (8.5-10.1); Osmolality,Calculated 289.3 MOS/KG (273-304); Potassium 3.5 MMOL/L (3.5-5.1)
[2021-08-27 05:54] LABS: ABG Base Excess 8.7 MMOL/L (-2.5-2.5); ABG HCO3 32.4 MMOL/L (20-26); ABG Oxygen Saturation 98.9 % (95-100); ABG PCO2 53.6 MM HG (35-48); ABG PH 7.422 (7.35-7.45); ABG TCO2 30.9 MMOL/L (23-27)
[2021-08-27 06:09] LABS: Alanine Aminotransferase 23 U/L (16-61); Albumin 2.7 G/DL (3.4-5.0); Alkaline Phosphatase 53 U/L (45-117); Aspartate Amino Transferase 11 U/L (0-37); Bilirubin,Direct < 0.100 MG/DL (0.0-0.20); Bilirubin,Indirect 0.3 MG/DL (0.0-1.0); Bilirubin,Total < 0.39 MG/DL (0.20-1.00); Total Protein 7.1 G/DL (6.4-8.2)
[2021-08-27] MEDS: PANTOPRAZOLE 40 MG VIAL IV SCH (08:06)
[2021-08-27] MEDS: ENOXAPARIN 40 MG/0.4 ML SYRINGE SUBCUT SCH (08:06)
[2021-08-27] MEDS: INSULIN LISPRO 100 UNIT/ML SUBCUT SCH ×2 (08:07→20:47)
[2021-08-27] MEDS: allopurinoL 100 MG TABLET PO SCH (08:07)
[2021-08-27] MEDS: ASCORBIC ACID 500 MG TABLET PEG SCH ×2 (08:07→20:47)
[2021-08-27] MEDS: ROSUVASTATIN 20 MG TABLET PEG SCH (08:07)
[2021-08-27] MEDS: ASPIRIN CHEW 81 MG TABLET PO SCH (08:07)
[2021-08-27] MEDS: LINACLOTIDE 145 MCG CAPSULE PO SCH (08:08)
[2021-08-27] MEDS: CHOLECALCIFEROL 5,000 UNIT TABLET PO SCH (08:08)
[2021-08-27] MEDS: LACTATED RINGERS 1,000 ML IV SCH ×2 (08:09→22:34)
[2021-08-27] MEDS ORDERED: METOPROLOL TARTRATE 5 MG/5 ML VIAL IV ONE (16:21)
[2021-08-27] MEDS: CITALOPRAM 20 MG TABLET PO SCH (20:47)
[2021-08-28] MEDS: ALBUTEROL/IPRATROPIUM 3 ML NEB RESP TX SCH ×4 (00:13→20:21)
[2021-08-28] MEDS: METOPROLOL TARTRATE 5 MG/5 ML VIAL IV SCH ×4 (00:55→17:07)
[2021-08-28] MEDS: ACETAMINOPHEN 325 MG/10.15 ML UDCUP PO SCH (01:09)
[2021-08-28] MEDS: diphenhydrAMINE 25 MG/10 ML UDCUP PO SCH (01:09)
[2021-08-28] MEDS: IMMUNE GLOBULIN 10% 20 GM, IMMUNE GLOBULIN 10% 10 GM, IMMUNE GLOBULIN 10% 5 GM in PREMI... IV SCH (01:58)
[2021-08-28 04:46] LABS: Basophils % 0.1 % (0.0-0.8); Eosinophils % 0.1 % (0.00-10.9); Hematocrit 32.1 VOL% (42.0-52.0); Hemoglobin 10.4 GM/DL (14.0-18.0); Immature Granulocytes % 0.6 %; Immature Granulocytes Absolute 0.05 #; Lymphocytes # 0.9 10*3/uL (1.4-4.0); Lymphocytes % 10.7 % (21.2-54.2); Mean Corpuscular HGB Conc 32.4 GM/DL (32-36); Mean Corpuscular Volume 102.2 FL (87-102); Mean Platelet Volume 10.4 FL (9.6-12.0); Monocytes # 0.7 10*3/uL (0.11-0.8); Monocytes % 8.7 % (1.7-12.7); Neutrophils % 79.8 % (38.7-73.9); Platelet Count 202 T/CUMM (130-400); Red Blood Count 3.14 MC/CUMM (3.8-5.5); Red Cell Distribution Width 14.3 % (9.3-17.3); White Blood Count 8.5 T/CUMM (4-12)
[2021-08-28 05:15] LABS: Calcium 8.4 MG/DL (8.5-10.1); Potassium 3.7 MMOL/L (3.5-5.1)
[2021-08-28 05:17] LABS: Alanine Aminotransferase 16 U/L (16-61); Albumin 2.2 G/DL (3.4-5.0); Alkaline Phosphatase 44 U/L (45-117); Aspartate Amino Transferase 8 U/L (0-37); Bilirubin,Direct < 0.100 MG/DL (0.0-0.20); Bilirubin,Indirect 0.3 MG/DL (0.0-1.0); Bilirubin,Total < 0.39 MG/DL (0.20-1.00); Total Protein 6.3 G/DL (6.4-8.2)
[2021-08-28] MEDS: methylPREDNISolone SOD SUC 40 MG/1 ML VIAL IV SCH ×2 (05:30→17:07)
[2021-08-28 06:16] LABS: ABG Base Excess 10.3 MMOL/L (-2.5-2.5); ABG Oxygen Saturation 99.2 % (95-100); ABG PCO2 56.5 MM HG (35-48); ABG PH 7.421 (7.35-7.45); ABG TCO2 33.1 MMOL/L (23-27)
[2021-08-28 06:20] LABS: Osmolality,Calculated 288.1 MOS/KG (273-304)
[2021-08-28] MEDS: INSULIN LISPRO 100 UNIT/ML SUBCUT SCH ×2 (08:02→20:50)
[2021-08-28] MEDS: PANTOPRAZOLE 40 MG VIAL IV SCH (08:02)
[2021-08-28] MEDS: CHOLECALCIFEROL 5,000 UNIT TABLET PO SCH (08:02)
[2021-08-28] MEDS: allopurinoL 100 MG TABLET PO SCH (08:02)
[2021-08-28] MEDS: ENOXAPARIN 40 MG/0.4 ML SYRINGE SUBCUT SCH (08:02)
[2021-08-28] MEDS: LINACLOTIDE 145 MCG CAPSULE PO SCH (08:03)
[2021-08-28] MEDS: ASCORBIC ACID 500 MG TABLET PEG SCH ×2 (08:03→20:50)
[2021-08-28] MEDS: ROSUVASTATIN 20 MG TABLET PEG SCH (08:03)
[2021-08-28] MEDS: ASPIRIN CHEW 81 MG TABLET PO SCH (08:03)
[2021-08-28] MEDS: MORPHINE 2 MG/1 ML SYRINGE IV PRN ×3 (09:34→20:50)
[2021-08-28] MEDS: LACTATED RINGERS 1,000 ML IV SCH (11:10)
[2021-08-28 11:26] LABS: M. Tuberculosis PCR Result Negative (Negative); M. Tuberculosis PCR Source BRONCH WASH
[2021-08-28] MEDS ORDERED: FUROSEMIDE 40 MG/4 ML VIAL IV ONE (14:06)
[2021-08-28] MEDS ORDERED: METOPROLOL TARTRATE 5 MG/5 ML VIAL IV ONE (14:06)
[2021-08-28 20:03] VITALS: BP 179/97
[2021-08-28] MEDS: CITALOPRAM 20 MG TABLET PO SCH (20:50)
[2021-08-29] MEDS: ALBUTEROL/IPRATROPIUM 3 ML NEB RESP TX SCH ×4 (00:07→19:40)
[2021-08-29] MEDS: ACETAMINOPHEN 325 MG/10.15 ML UDCUP PO SCH (02:07)
[2021-08-29] MEDS: diphenhydrAMINE 25 MG/10 ML UDCUP PO SCH (02:07)
[2021-08-29] MEDS: METOPROLOL TARTRATE 5 MG/5 ML VIAL IV SCH ×4 (02:08→18:10)
[2021-08-29] MEDS: LACTATED RINGERS 1,000 ML IV SCH (02:10)
[2021-08-29] MEDS: IMMUNE GLOBULIN 10% 20 GM, IMMUNE GLOBULIN 10% 10 GM, IMMUNE GLOBULIN 10% 5 GM in PREMI... IV SCH (02:12)
[2021-08-29 04:19] LABS: ABG Base Excess 12.1 MMOL/L (-2.5-2.5); ABG HCO3 35.9 MMOL/L (20-26); ABG Oxygen Saturation 97.8 % (95-100); ABG PCO2 59.1 MM HG (35-48); ABG PH 7.426 (7.35-7.45); ABG TCO2 35.1 MMOL/L (23-27)
[2021-08-29] MEDS: methylPREDNISolone SOD SUC 40 MG/1 ML VIAL IV SCH ×2 (05:17→18:13)
[2021-08-29 07:02] LABS: Basophils % 0.2 % (0.0-0.8); Eosinophils % 0.5 % (0.00-10.9); Hematocrit 32.9 VOL% (42.0-52.0); Hemoglobin 10.5 GM/DL (14.0-18.0); Immature Granulocytes % 0.5 %; Immature Granulocytes Absolute 0.03 #; Lymphocytes # 1.1 10*3/uL (1.4-4.0); Lymphocytes % 17.8 % (21.2-54.2); Mean Corpuscular HGB Conc 31.9 GM/DL (32-36); Mean Corpuscular Volume 102.2 FL (87-102); Mean Platelet Volume 10.6 FL (9.6-12.0); Monocytes # 0.7 10*3/uL (0.11-0.8); Monocytes % 10.4 % (1.7-12.7); Neutrophils % 70.6 % (38.7-73.9); Platelet Count 194 T/CUMM (130-400); Red Blood Count 3.22 MC/CUMM (3.8-5.5); Red Cell Distribution Width 14.5 % (9.3-17.3); White Blood Count 6.4 T/CUMM (4-12)
[2021-08-29] MEDS ORDERED: FUROSEMIDE 40 MG/4 ML VIAL IV ONE (07:08)
[2021-08-29 07:21] LABS: Calcium 8.7 MG/DL (8.5-10.1); Potassium 3.6 MMOL/L (3.5-5.1)
[2021-08-29 07:32] LABS: Osmolality,Calculated 279.5 MOS/KG (273-304)
[2021-08-29] MEDS: CHOLECALCIFEROL 5,000 UNIT TABLET PO SCH (09:44)
[2021-08-29] MEDS: allopurinoL 100 MG TABLET PO SCH (09:44)
[2021-08-29] MEDS: ASCORBIC ACID 500 MG TABLET PEG SCH ×2 (09:44→20:15)
[2021-08-29] MEDS: ASPIRIN CHEW 81 MG TABLET PO SCH (09:44)
[2021-08-29] MEDS: LINACLOTIDE 145 MCG CAPSULE PO SCH (09:45)
[2021-08-29] MEDS: ENOXAPARIN 40 MG/0.4 ML SYRINGE SUBCUT SCH (09:47)
[2021-08-29] MEDS: PANTOPRAZOLE 40 MG VIAL IV SCH (09:52)
[2021-08-29] MEDS: INSULIN LISPRO 100 UNIT/ML SUBCUT SCH ×2 (09:54→20:15)
[2021-08-29] MEDS: MORPHINE 2 MG/1 ML SYRINGE IV PRN (12:09)
[2021-08-29] MEDS: CITALOPRAM 20 MG TABLET PO SCH (20:15)
[2021-08-30] MEDS: ALBUTEROL/IPRATROPIUM 3 ML NEB RESP TX SCH ×4 (00:04→18:27)
[2021-08-30] MEDS: METOPROLOL TARTRATE 5 MG/5 ML VIAL IV SCH ×2 (00:06→05:12)
[2021-08-30 02:54] LABS: Arterial Base Excess iSTAT 17 MMOL/L (-2.5-2.5); Arterial Bicarbonate iSTAT 42.4 MMOL/L (20-26); Arterial O2 Saturation iSTAT 94 % (95-100); Arterial PCO2 iSTAT 56 MM HG (35-48); Arterial PO2 iSTAT 66 MM HG (80-95); Arterial Total CO2 iSTAT 44 MMO/L (23-27); Arterial pH iSTAT 7.488 (7.35-7.45)
[2021-08-30 04:20] LABS: Basophils % 0.1 % (0.0-0.8); Hematocrit 34.4 VOL% (42.0-52.0); Hemoglobin 10.9 GM/DL (14.0-18.0); Immature Granulocytes % 0.5 %; Immature Granulocytes Absolute 0.04 #; Lymphocytes # 0.7 10*3/uL (1.4-4.0); Lymphocytes % 9.2 % (21.2-54.2); Mean Corpuscular HGB Conc 31.7 GM/DL (32-36); Mean Platelet Volume 11.2 FL (9.6-12.0); Monocytes # 0.8 10*3/uL (0.11-0.8); Monocytes % 9.7 % (1.7-12.7); Neutrophils % 80.5 % (38.7-73.9); Platelet Count 185 T/CUMM (130-400); Red Blood Count 3.34 MC/CUMM (3.8-5.5); Red Cell Distribution Width 14.6 % (9.3-17.3)
[2021-08-30 04:35] LABS: Calcium 8.3 MG/DL (8.5-10.1); Osmolality,Calculated 282.5 MOS/KG (273-304); Potassium 3.8 MMOL/L (3.5-5.1)
[2021-08-30] MEDS: methylPREDNISolone SOD SUC 40 MG/1 ML VIAL IV SCH ×2 (05:12→18:02)
[2021-08-30] MEDS: LINACLOTIDE 145 MCG CAPSULE PO SCH (09:57)
[2021-08-30] MEDS: PANTOPRAZOLE 40 MG VIAL IV SCH (10:00)
[2021-08-30] MEDS: INSULIN LISPRO 100 UNIT/ML SUBCUT SCH ×2 (10:04→20:23)
[2021-08-30] MEDS: CHOLECALCIFEROL 5,000 UNIT TABLET PO SCH (10:04)
[2021-08-30] MEDS: ASPIRIN CHEW 81 MG TABLET PO SCH (10:05)
[2021-08-30] MEDS: allopurinoL 100 MG TABLET PO SCH (10:05)
[2021-08-30] MEDS: ENOXAPARIN 40 MG/0.4 ML SYRINGE SUBCUT SCH (10:05)
[2021-08-30] MEDS: METOPROLOL TARTRATE 25 MG TABLET PO SCH ×2 (10:05→20:23)
[2021-08-30] MEDS: ASCORBIC ACID 500 MG TABLET PEG SCH ×2 (10:05→20:23)
[2021-08-30] MEDS ORDERED: METOPROLOL TARTRATE 5 MG/5 ML VIAL IV PRN (10:59)
[2021-08-30] MEDS: CITALOPRAM 20 MG TABLET PO SCH (20:23)
[2021-08-30] MEDS: MORPHINE 2 MG/1 ML SYRINGE IV PRN (20:42)
[2021-08-31] MEDS: ALBUTEROL/IPRATROPIUM 3 ML NEB RESP TX SCH ×3 (00:06→12:05)
[2021-08-31 03:36] LABS: ABG HCO3 29.9 MMOL/L (20-26); ABG Oxygen Saturation 98.3 % (95-100); ABG PCO2 51.2 MM HG (35-48); ABG PH 7.403 (7.35-7.45); ABG TCO2 28.9 MMOL/L (23-27)
[2021-08-31 04:37] LABS: Hematocrit 31.5 VOL% (42.0-52.0); Immature Granulocytes % 0.6 %; Immature Granulocytes Absolute 0.05 #; Lymphocytes # 0.7 10*3/uL (1.4-4.0); Mean Corpuscular HGB Conc 31.7 GM/DL (32-36); Mean Corpuscular Volume 102.6 FL (87-102); Mean Platelet Volume 10.7 FL (9.6-12.0); Monocytes # 0.7 10*3/uL (0.11-0.8); Monocytes % 7.6 % (1.7-12.7); Neutrophils % 83.8 % (38.7-73.9); Platelet Count 220 T/CUMM (130-400); Red Blood Count 3.07 MC/CUMM (3.8-5.5); Red Cell Distribution Width 14.7 % (9.3-17.3); White Blood Count 8.5 T/CUMM (4-12)
[2021-08-31 04:52] LABS: Calcium 8.6 MG/DL (8.5-10.1); Osmolality,Calculated 279.8 MOS/KG (273-304); Potassium 3.7 MMOL/L (3.5-5.1)
[2021-08-31] MEDS: methylPREDNISolone SOD SUC 40 MG/1 ML VIAL IV SCH (05:22)
[2021-08-31] MEDS: POTASSIUM CHLORIDE 20 MEQ TABLET PO PRN (05:30)
[2021-08-31] MEDS: MORPHINE 2 MG/1 ML SYRINGE IV PRN (06:33)
[2021-08-31] MEDS: METOPROLOL TARTRATE 25 MG TABLET PO SCH (08:56)
[2021-08-31] MEDS: ASCORBIC ACID 500 MG TABLET PEG SCH (08:56)
[2021-08-31] MEDS: CHOLECALCIFEROL 5,000 UNIT TABLET PO SCH (08:56)
[2021-08-31] MEDS: allopurinoL 100 MG TABLET PO SCH (08:56)
[2021-08-31] MEDS: ASPIRIN CHEW 81 MG TABLET PO SCH (08:56)
[2021-08-31] MEDS: ENOXAPARIN 40 MG/0.4 ML SYRINGE SUBCUT SCH (08:57)
[2021-08-31] MEDS: INSULIN LISPRO 100 UNIT/ML SUBCUT SCH (08:57)
[2021-08-31] MEDS: PANTOPRAZOLE 40 MG VIAL IV SCH (08:57)
[2021-08-31] MEDS: LINACLOTIDE 145 MCG CAPSULE PO SCH (08:58)
[2021-08-31] MEDS ORDERED: IMMUNE GLOBULIN 10% 20 GM, IMMUNE GLOBULIN 10% 10 GM, IMMUNE GLOBULIN 10% 5 GM in PREMI... IV ONE (12:00)
== END 2021-08-31 16:00 | disposition hospice, home (50) | DRG 177 ==
LOC: EDBD → EDUNIT# → N.ED 20:18 → SUATTDRO 08-18 03:31 → N.ICU 08-18 04:17 → N.CC 08-26 18:38
PROVIDERS: ADMIT Family Medicine; ATTEND Internal Medicine